=== PATIENT | male | born 2000 | race Caucasian/White ===

== ENCOUNTER 2023-11-02 17:15 | Emergency (ER) | payer BC ==
[~2023-11-02] VITALS: Ht 185.4 cm; Wt 81.8 kg
[2023-11-02 17:29] VITALS: TEMP 98.5
[2023-11-02] MEDS ORDERED: CEPHALEXIN500 M1 PO (18:47)
[2023-11-02 19:09] VITALS: BP 123/67; PULSE 75
== END 2023-11-02 19:09 | disposition home or self-care (01) ==
LOC: COL.ER 17:15
DX: S61.211A Laceration without foreign body of left index finger without damage to nail, initial encounter (principal); Z23 Encounter for immunization; W26.8XXA Contact with other sharp object(s), not elsewhere classified, initial encounter; Y93.89 Activity, other specified